=== PATIENT | male | born 1990 | race Caucasian/White ===

== ENCOUNTER 2018-05-31 13:55 | Emergency (ER) | payer SELFPAY ==
[2018-05-31 14:37] LABS: ABS Basophils 0.1 10^3/ul (0-0.2); ABS Eosinophils 0 10^3/ul (0-0.6); ABS Lymphocytes 2.6 10^3/ul (1.0-4.8); ABS Monocytes 0.8 10^3/ul (0-0.8); ABS Neutrophils 10.5 10^3/ul (1.5-7.7); ABS Nucleated RBC 0 10^3/ul; Eosinophil % 0.2 % (0-6); Hematocrit 45 % (42-52); Hemoglobin 15.8 g/dl (14.0-18.0); Lymphocyte % 18.4 % (25-47); Mean Corpuscular HGB Conc 35 g/dl (31-36); Mean Corpuscular Hemoglobin 32 pg (27-31); Mean Corpuscular Volume 90 fL (80-94); Mean Platelet Volume 7.5 um3 (7.4-10.4); Nucleated Red Blood Cells % 0; Platelet Count 270 10^3/ul (150-450); Red Blood Count 4.96 10^6/ul (4.00-5.40); Red Cell Distribution Width 13 % (10.5-15)
[2018-05-31 14:38] LABS: Urine Appearance Clear; Urine Blood Negative (Negative); Urine Color Yellow; Urine Ketones Negative (Negative); Urine Protein Negative (Negative); Urine Specific Gravity 1.013 (1.010-1.030); Urine Urobilinogen Negative (Negative)
--- NOTE | 2018-05-31 14:52 | ED ---
Psychiatric Complaint - HPI Summary HPI Summary: This is naren Rosario documenting for attending Bandar Burch MD. Patient is a 27 y/o M w/ c/o depression, SI and substance abuse. Patient states he has Hx of depression and self medication for the past decade. He reports that he recently "fell off the wagon badly" and "does not see any way out". He reports alcohol abuse and cocaine usage. He states he is a binge drinker, that he drank last night, and that he used cocaine last night. Patient reports this episode frightened him, which prompted ED visit. He notes SI and states he thinks about suicide "every day". Patient reports a previous suicide attempt two years ago by hanging. PMHx of ADHD. He denies taking any medications. On triage, pain is denied and nothing is noted to aggravate/alleviate Sx. Allergies reviewed. - History Of Current Complaint Chief Complaint: [facility]ental[facility] Time Seen by Provider: 05/31/18 14:16 Hx Obtained From: Patient Onset/Duration: Lasting Days - alcohol and cocaine usage last night, Lasting Weeks - substance abuse and depression for a decade Severity Currently: None - on triage, pain is denied Character: Depressed Aggravating Factor(s): Nothing Alleviating Factor(s): Nothing Has Suicidal: Reports: Thoughts - every day, Has Prior Attempt(s) - one is reported; two years ago, attempted suicide by hanging Ingestion History: Type/Name Of Drug - cocaine - Allergies/Home Medications Allergies/Adverse Reactions: Allergies Allergy/AdvReac Type Severity Reaction Status Date / Time No Known Allergies Allergy Verified 05/31/18 14:06 Home Medications: Home Medications NK [No Home Medications Reported] 05/31/18 [History Confirmed 05/31/18] PMH/Surg Hx/FS Hx/Imm Hx Sensory History: Denies: Hx Legally Blind Psychiatric History: Reports: Hx Attention Deficit Hyperactivity Disorder, Hx Depression, Hx Suicide Attempt Infectious Disease History: No Infectious Disease History: Denies: Traveled Outside the [place] in Last 30 Days - Family History Known Family History: Negative: Blood Disorder - Social History Alcohol Use: Weekly Alcohol Amount: binge drinker Substance Use Type: Reports: Cocaine, Marijuana, Prescribed Smoking Status (MU): Current Some Day Smoker Review of Systems Negative: Fever - on vitals, temperature is 99.0 F Positive: Depressed, Other - cocaine abuse, alcohol abuse, SI All Other Systems Reviewed And Are Negative: Yes Physical Exam - Summary Physical Exam Summary: Appearance: The patient is well-nourished in no acute distress and in no acute pain. Skin: The skin is warm and dry and skin color reflects adequate perfusion. HEENT: The head is normocephalic and atraumatic. The pupils are equal and reactive. The conjunctivae are clear and without drainage. Nares are patent and without drainage. Mouth reveals moist mucous membranes and the throat is without erythema and exudate. The external ears are intact. The ear canals are patent and without drainage. The tympanic membranes are intact. Neck: The neck is supple with full range of motion and non-tender. There are no carotid bruits. There is no neck vein distension. Respiratory: Chest is non-tender. Lungs are clear to auscultation and breath sounds are symmetrical and equal. Cardiovascular: Heart is regular rate and rhythm. There is no murmur or rub auscultated. There is no peripheral edema and pulses are symmetrical and equal. Abdomen: The abdomen is soft and non-tender. There are normal bowel sounds heard in all four quadrants and there is no organomegaly palpated. Musculoskeletal: There is no back tenderness noted. Extremities are non-tender with full range of motion. There is good capillary refill. There is no peripheral edema or calf tenderness elicited. Neurological: Patient is alert and oriented to person, place and time. The patient has symmetrical motor strength in all four extremities. Cranial nerves are grossly intact. Deep tendon reflexes are symmetrical and equal in all four extremities. Psychiatric: The patient has labile affect and does not exhibit any anxiety. SI expressed. Triage Information Reviewed: Yes Vital Signs On Initial Exam: Initial Vitals Temp Pulse Resp BP Pulse Ox 99.0 F 98 18 147/88 97 05/31/18 14:00 05/31/18 14:00 05/31/18 14:00 05/31/18 14:00 05/31/18 14:00 Vital Signs Reviewed: Yes Diagnostics - Vital Signs Vital Signs Temp Pulse Resp BP Pulse Ox 05/31/18 14:00 99.0 F 98 18 147/88 97 - Laboratory Lab Results: Lab Results 05/31/18 05/31/18 Range/Units 14:26 14:31 WBC 14.0 H (3.5-10.8) 10^3/ul RBC 4.96 (4.00-5.40) 10^6/ul Hgb 15.8 (14.0-18.0) g/dl Hct 45 (42-52) % MCV 90 (80-94) fL MCH 32 H (27-31) pg MCHC 35 (31-36) g/dl RDW 13 (10.5-15) % Plt Count 270 (150-450) 10^3/ul MPV 7.5 (7.4-10.4) um3 Neut % (Auto) 75.2 (38-83) % Lymph % (Auto) 18.4 L (25-47) % [place] % (Auto) 5.8 (0-7) % Eos % (Auto) 0.2 (0-6) % Baso % (Auto) 0.4 (0-2) % Absolute Neuts (auto) 10.5 H (1.5-7.7) 10^3/ul Absolute Lymphs (auto) 2.6 (1.0-4.8) 10^3/ul Absolute Monos (auto) 0.8 (0-0.8) 10^3/ul Absolute Eos (auto) 0 (0-0.6) 10^3/ul Absolute Basos (auto) 0.1 (0-0.2) 10^3/ul Absolute Nucleated RBC 0 10^3/ul Nucleated RBC % 0 Urine Color Yellow Urine Appearance Clear Urine pH 5.0 (5-9) Ur Specific [place] 1.013 (1.010-1.030) Urine Protein Negative (Negative) Urine Ketones Negative (Negative) Urine Blood Negative (Negative) Urine Nitrate Negative (Negative) Urine Bilirubin Negative (Negative) Urine Urobilinogen Negative (Negative) Ur Leukocyte Esterase Negative (Negative) Urine Glucose Negative (Negative) Result Diagrams: 05/31/18 14:31 05/31/18 14:31 Lab Statement: Any lab studies that have been ordered have been reviewed, and results considered in the medical decision making process. Re-Evaluation - Re-Evaluation First Eval Re-Evaluation Time: 15:36 Comment: Patient is medically cleared and will be moved to flex unit. Course/Dx - Course Course Of Treatment: Mr. Reynoso presented with a long history of depression especially associated with substance abuse. 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 He was medically cleared and evaluated by the mental health sewer pipe offbearer. They felt that he was safe for discharge and helped him set up follow-up. - Differential Dx/Clinical Impression Provider Diagnosis: Depression - Physician Notifications Discussed Care Of Patient With: Mental Health [facility] Time Discussed With Above Provider: 18:00 Instructed by Provider To: Other - [facility] discussed care of patient with Dr. Burch at 1800. Patient was discharged to home. Discharge - Sign-Out/Discharge Documenting (check all that apply): Patient Departure - Discharge Plan Condition: Stable Disposition: HOME Patient Education Materials: Mood Disorders (ED), Abuse of Alcohol (ED), Polysubstance Abuse (ED) Referrals: [facility] [Outside] [facility] [Outside] [facility] [Outside] [facility] [Outside] - Billing Disposition and Condition Condition: STABLE Disposition: Home
[2018-05-31 15:03] LABS: EGFR Non-African American 95.8 (>60)
[2018-05-31 19:35] VITALS: BP 139/75
== END 2018-05-31 19:30 | disposition home or self-care (01) ==
LOC: ED 13:55
DX: F32.9 Major depressive disorder, single episode, unspecified (principal); Z72.0 Tobacco use
CPT/HCPCS: 36415; 80053; 80307; 80320; 80329; 81003; 84443; 85025; 99285; G0480